=== PATIENT | male | born 1930 | race Caucasian/White ===

== ENCOUNTER 2018-06-09 16:54 | Emergency (ER) | payer MEDICARE ==
[~2018-06-09] VITALS: Ht 170.2 cm; Wt 72.0 kg
[2018-06-09 16:58] VITALS: BP 150/76
[2018-06-09] MEDS ORDERED: LIDOCAINE-MPF 1%, 5ML ONE (17:11)
[2018-06-09] MEDS ORDERED: DIPH,PERTUSS(ACELL),TET VAC/PF 0.5 ML IM-VACC ONE ×2 (17:11→17:30)
[2018-06-09] MEDS ORDERED: LIDOCAINE-MPF 1%, 5ML INFIL ONE (17:30)
[2018-06-09] MEDS ORDERED: BACITRACIN ZINC OINT 500U/GM, 0.9 GM ONE (19:11)
== END 2018-06-09 19:18 | disposition home or self-care (01) ==
LOC: ED 19:00
DX: S01.412A Laceration without foreign body of left cheek and temporomandibular area, initial encounter (principal); W22.8XXA Striking against or struck by other objects, initial encounter; Y93.89 Activity, other specified; Y92.096 Garden or yard of other non-institutional residence as the place of occurrence of the external cause; Y99.8 Other external cause status
CPT/HCPCS: 12011; 90471; 90715; 99283